=== PATIENT | female | born 1995 | race Hispanic/Latino ===

== ENCOUNTER 2018-05-25 22:09 | Emergency (ER) | payer OTHER ==
[2018-05-25] MEDS: ALBUTEROL 90 MCG/ACT 8GM HFA INHALER INH (23:59)
[2018-05-26] MEDS: BENZONATATE 100 MG CAP PO (00:01)
== END 2018-05-26 00:06 | disposition home or self-care (01) ==
LOC: M ED 05-26 00:06
DX: J20.9 Acute bronchitis, unspecified (principal); J45.909 Unspecified asthma, uncomplicated; E28.2 Polycystic ovarian syndrome; F41.9 Anxiety disorder, unspecified; Z79.899 Other long term (current) drug therapy
CPT/HCPCS: 71046

== ENCOUNTER 2018-06-30 13:20 | Emergency (ER) | payer OTHER ==
[2018-06-30 14:17] LABS: AMORPHOUS SEDIMENT RFX MODERATE (NEGATIVE); KETONE, URINE AUTO RFX NEGATIVE (NEGATIVE); MUCUS, URINE RFX SMALL (NEGATIVE); NITRITE, URINE AUTO RFX NEGATIVE (NEGATIVE); RBC, URINE AUTO RFX 7 /HPF (0-3); SPECIFIC GRAVITY UR AUTO RFX 1.009 (1.002-1.035); SQUAM EPITHELIAL CELL UR AURFX 12 /HPF (0-6)
[2018-06-30 14:21] LABS: LEUKOCYTE ESTERASE UR AUTO RFX 3+ (NEGATIVE); WBC, URINE AUTO RFX 61 /HPF (0-3)
[2018-06-30 16:05] LABS: CHLAMYDIA DNA AMPLIFICATION NEGATIVE (NEGATIVE); GC DNA AMPLIFICATION NEGATIVE (NEGATIVE)
== END 2018-06-30 14:53 | disposition home or self-care (01) ==
LOC: M ED 13:20
DX: N30.00 Acute cystitis without hematuria (principal); J45.909 Unspecified asthma, uncomplicated; E28.2 Polycystic ovarian syndrome; Z79.899 Other long term (current) drug therapy
CPT/HCPCS: 81001

== ENCOUNTER → 2018-07-14 | Outpatient (REF) | payer OTHER ==
[2018-07-14 17:55] LABS: BASO % 0.1 % (0.0-1.0); EOS # 0.2 10^3/uL (0.0-0.50); EOS % 1.9 % (0.0-3.0); HEMATOCRIT 36.8 % (36.0-47.0); HEMOGLOBIN 12.2 g/dl (12.0-15.5); IMMATURE GRANULOCYTE % 0.4 % (0-3.0); LYMPH # 2.7 10^3/uL (1.5-6.5); LYMPH % 33.8 % (24.0-44.0); MEAN CORPUSCULAR HEMOGLOBIN 30.2 pg (27.0-33.0); MEAN CORPUSCULAR HGB CONC 33.2 g/dl (32.0-36.5); MEAN CORPUSCULAR VOLUME 91.1 fl (80.0-96.0); MONO # 0.4 10^3/uL (0.0-0.8); MONO % 5.1 % (0.0-5.0); NEUTROPHILS # 4.6 10^3/uL (1.8-7.7); NEUTROPHILS % 58.7 % (36.0-66.0); PLATELET COUNT, AUTOMATED 341 10^3/uL (150-450); RED BLOOD COUNT 4.04 10^6/uL (4.00-5.40); RED CELL DISTRIBUTION WIDTH 13.3 % (11.5-14.5); WHITE BLOOD COUNT 7.9 10^3/uL (4.0-10.0)
[2018-07-14 18:19] LABS: ESTIMATED AVERAGE GLUCOSE 97 MG/DL (60-110)
[2018-07-14 18:36] LABS: ALBUMIN 4.2 GM/DL (3.2-5.2); ALBUMIN/GLOBULIN RATIO 1.24 (1.00-1.93); ALKALINE PHOSPHATASE 75 U/L (45-117); ALT/SGPT 44 U/L (12-78); ANION GAP 11 MEQ/L (8-16); AST/SGOT 26 U/L (7-37); BILIRUBIN,TOTAL 0.7 MG/DL (0.2-1.0); BLOOD UREA NITROGEN 8 MG/DL (7-18); CALCIUM LEVEL 8.5 MG/DL (8.5-10.1); CARBON DIOXIDE LEVEL 27 MEQ/L (21-32); CHLORIDE LEVEL 102 MEQ/L (98-107); CHOLESTEROL LEVEL 149 MG/DL (<200); CHOLESTEROL RISK RATIO 5.137 (<5); CREATININE FOR GFR 0.64 MG/DL (0.55-1.30); FOLATE 15.7 NG/ML; GLOMERULAR FILTRATION RATE > 60.0 (>60); GLUCOSE, FASTING 84 MG/DL (70-100); HDL CHOLESTEROL 29 MG/DL (>40); LDL CHOLESTEROL 109 MG/DL (<100); NON-HDL-C 120 MG/DL; POTASSIUM SERUM 4.3 MEQ/L (3.5-5.1); SODIUM LEVEL 140 MEQ/L (136-145); TOTAL 25(OH) VITAMIN D 34.8 NG/ML (30.0-100.0); TOTAL PROTEIN 7.6 GM/DL (6.4-8.2); TRIGLYCERIDES LEVEL 55 MG/DL (<150); VITAMIN B12 LEVEL 522 PG/ML
== END ==
LOC: M LAB REF 16:34
DX: Z13.9 Encounter for screening, unspecified (principal)
CPT/HCPCS: 82746

== ENCOUNTER 2018-10-17 08:59 | Emergency (ER) | payer OTHER ==
[~2018-10-17] VITALS: Ht 170.2 cm; Wt 84.5 kg
[~2018-10-17 08:59] MED LIST: APAP500T10 PO; Albuterol inhaler INH; BACT800T5 PO; METF10004 PO; TESS100C PO; VENTAER INH
[2018-10-17] MEDS ORDERED: NS 1,000 ML IV ONE (09:45)
[2018-10-17 09:55] LABS: BASO % 0.3 % (0.0-1.0); EOS # 0.4 10^3/uL (0.0-0.50); EOS % 2.6 % (0.0-3.0); HEMATOCRIT 39.3 % (36.0-47.0); HEMOGLOBIN 13.3 g/dl (12.0-15.5); LYMPH # 3.5 10^3/uL (1.5-6.5); LYMPH % 23.7 % (24.0-44.0); MEAN CORPUSCULAR HEMOGLOBIN 30.2 pg (27.0-33.0); MEAN CORPUSCULAR HGB CONC 33.8 g/dl (32.0-36.5); MEAN CORPUSCULAR VOLUME 89.1 fl (80.0-96.0); MONO # 0.9 10^3/uL (0.0-0.8); MONO % 6.3 % (0.0-5.0); NEUTROPHILS # 9.9 10^3/uL (1.8-7.7); NEUTROPHILS % 66.8 % (36.0-66.0); PLATELET COUNT, AUTOMATED 318 10^3/uL (150-450); RED BLOOD COUNT 4.41 10^6/uL (4.00-5.40); WHITE BLOOD COUNT 14.9 10^3/uL (4.0-10.0)
[2018-10-17 10:12] LABS: HCG, SERUM QUALITATIVE NEGATIVE (NEGATIVE)
[2018-10-17] MEDS ORDERED: KETOROLAC 30 MG/ML VIAL (J1885) IV ONE (10:15)
[2018-10-17 10:18] LABS: BLOOD UREA NITROGEN 8 MG/DL (7-18); CALCIUM LEVEL 9.1 MG/DL (8.5-10.1); CARBON DIOXIDE LEVEL 28 MEQ/L (21-32); CHLORIDE LEVEL 103 MEQ/L (98-107); CREATININE FOR GFR 0.63 MG/DL (0.55-1.30); GLOMERULAR FILTRATION RATE > 60.0 (>60); GLUCOSE, FASTING 86 MG/DL (70-100); POTASSIUM SERUM 4.1 MEQ/L (3.5-5.1); SODIUM LEVEL 138 MEQ/L (136-145)
[2018-10-17] MEDS ORDERED: PERC5TAB12 PO (11:28)
--- NOTE | 2018-10-17 11:28 | REP ---
PELVIC ULTRASOUND: Real-time sonographic evaluation of the pelvis is performed utilizing transabdominal and endovaginal technique. Bladder measures 7.6 x 5.3 x 8.6 cm. The uterus measures 8.3 x 3.0 x 5.4 cm. Endometrial thickness if 4 mm with no endometrial fluid collection. The ovaries are normal in size and echotexture, right ovary measuring 4.7 x 2.8 x 3.4 cm and left ovary 4.1 x 3.0 x 4.2 x cm. There is no adnexal mass or free fluid. There is no torsion with duplex Doppler evaluation, RI right ovary 0.58, left ovary 0.53. IMPRESSION: Negative pelvic ultrasound. Electronically Signed by Dusty Tapia MD 10/17/2018 05:39 P
[2018-10-17 11:34] VITALS: BP 119/75
== END 2018-10-17 11:38 | disposition home or self-care (01) ==
LOC: M ED 08:59
DX: R10.2 Pelvic and perineal pain (principal); G89.29 Other chronic pain; E28.2 Polycystic ovarian syndrome; Z87.42 Personal history of other diseases of the female genital tract; F41.9 Anxiety disorder, unspecified; J45.909 Unspecified asthma, uncomplicated; Z79.84 Long term (current) use of oral hypoglycemic drugs
CPT/HCPCS: 76830; 76856; 80048; 81001; 84703; 85025; 87086; 93976; 96374; 99284; J1885

== ENCOUNTER 2018-11-06 16:38 | Emergency (ER) | payer OTHER ==
[~2018-11-06] VITALS: Ht 170.2 cm; Wt 86.4 kg
[~2018-11-06 16:38] MED LIST changes: +PERC5TAB12 PO
[2018-11-06] MEDS ORDERED: CLOMID (16:47)
[2018-11-06] MEDS ORDERED: NS 1,000 ML IV ONE (17:15)
[2018-11-06] MEDS ORDERED: ONDANSETRON 4MG/2ML VIAL (J2405) IV ONE (17:15)
[2018-11-06 17:32] LABS: BASO % 0.3 % (0.0-1.0); HEMATOCRIT 38.7 % (36.0-47.0); HEMOGLOBIN 13.3 g/dl (12.0-15.5); LYMPH # 2.2 10^3/uL (1.5-6.5); LYMPH % 18.1 % (24.0-44.0); MEAN CORPUSCULAR HEMOGLOBIN 30.6 pg (27.0-33.0); MEAN CORPUSCULAR HGB CONC 34.4 g/dl (32.0-36.5); MONO # 0.4 10^3/uL (0.0-0.8); MONO % 3.5 % (0.0-5.0); NEUTROPHILS # 9.2 10^3/uL (1.8-7.7); NEUTROPHILS % 77.8 % (36.0-66.0); PLATELET COUNT, AUTOMATED 432 10^3/uL (150-450); RED BLOOD COUNT 4.35 10^6/uL (4.00-5.40); WHITE BLOOD COUNT 11.9 10^3/uL (4.0-10.0)
[2018-11-06 17:51] LABS: HCG, SERUM QUALITATIVE NEGATIVE (NEGATIVE)
[2018-11-06 17:55] LABS: ALBUMIN 4.6 GM/DL (3.2-5.2); ALT/SGPT 26 U/L (12-78); BILIRUBIN,DIRECT 0.2 MG/DL (0.0-0.2); BILIRUBIN,TOTAL 0.8 MG/DL (0.2-1.0); BLOOD UREA NITROGEN 12 MG/DL (7-18); CALCIUM LEVEL 9.6 MG/DL (8.5-10.1); CARBON DIOXIDE LEVEL 25 MEQ/L (21-32); CHLORIDE LEVEL 105 MEQ/L (98-107); CREATININE FOR GFR 0.65 MG/DL (0.55-1.30); GLOMERULAR FILTRATION RATE > 60.0 (>60); GLUCOSE, FASTING 100 MG/DL (70-100); LIPASE 88 U/L (73-393); SODIUM LEVEL 140 MEQ/L (136-145); TOTAL PROTEIN 8.6 GM/DL (6.4-8.2)
[2018-11-06 18:05] LABS: INFLUENZA A AMPLIFICATION NEGATIVE (NEGATIVE); INFLUENZA B AMPLIFICATION NEGATIVE (NEGATIVE)
[2018-11-06] MEDS ORDERED: ACETAMINOPHEN TAB 650MG DOSE (2X325MG) PO ONE (19:15)
[2018-11-06] MEDS ORDERED: ONDA4TAB6 PO (19:47)
[2018-11-06 19:57] VITALS: BP 118/67
--- NOTE | 2018-11-07 08:25 | REP ---
Chest x-ray: Two views. History: Cough times 2 weeks . Comparison study: May 25, 2018 . Findings: The lungs are well inflated and free of infiltrate. The pleural angles are sharp. The heart size is normal. Pulmonary vasculature is not increased. No significant bony abnormality is seen. Impression: Negative chest x-ray. Electronically Signed by Gil Tobin MD 11/07/2018 08:16 A
== END 2018-11-06 20:11 | disposition home or self-care (01) ==
LOC: M ED 16:38
DX: E86.0 Dehydration (principal); R10.84 Generalized abdominal pain; R11.2 Nausea with vomiting, unspecified; R19.7 Diarrhea, unspecified; Z20.89 Contact with and (suspected) exposure to other communicable diseases; E28.2 Polycystic ovarian syndrome; N80.9 Endometriosis, unspecified; Z79.899 Other long term (current) drug therapy; Z79.810 Long term (current) use of selective estrogen receptor modulators (SERMs)
CPT/HCPCS: 71046; 80048; 80076; 81001; 83690; 84703; 85025; 87502; 96361; 96374; 99284; J2405

== ENCOUNTER 2018-12-23 17:28 | Emergency (ER) | payer OTHER ==
[~2018-12-23] VITALS: Ht 170.2 cm; Wt 92.9 kg
[~2018-12-23 17:28] MED LIST changes: +CLOMID; +ONDA4TAB6 PO
[2018-12-23 17:29] VITALS: BP 138/88
[2018-12-23] MEDS ORDERED: MACR100C43 PO (18:15)
== END 2018-12-23 18:21 | disposition home or self-care (01) ==
LOC: M ED 17:28
DX: N39.0 Urinary tract infection, site not specified (principal); Z32.01 Encounter for pregnancy test, result positive; N80.9 Endometriosis, unspecified; J45.909 Unspecified asthma, uncomplicated

== ENCOUNTER 2018-12-28 03:04 | Emergency (ER) | payer OTHER ==
[~2018-12-28] VITALS: Ht 170.2 cm; Wt 90.0 kg
[~2018-12-28 03:04] MED LIST changes: +MACR100C43 PO
[2018-12-28] MEDS ORDERED: PRENTAB53 PO (03:10)
[2018-12-28 03:59] LABS: BASO % 0.3 % (0.0-1.0); EOS # 0.4 10^3/uL (0.0-0.50); EOS % 3.2 % (0.0-3.0); HEMATOCRIT 36.9 % (36.0-47.0); HEMOGLOBIN 12.1 g/dl (12.0-15.5); LYMPH # 4.2 10^3/uL (1.5-6.5); LYMPH % 31.9 % (24.0-44.0); MEAN CORPUSCULAR HEMOGLOBIN 30.6 pg (27.0-33.0); MEAN CORPUSCULAR HGB CONC 32.8 g/dl (32.0-36.5); MEAN CORPUSCULAR VOLUME 93.2 fl (80.0-96.0); MONO # 0.9 10^3/uL (0.0-0.8); MONO % 6.6 % (0.0-5.0); NEUTROPHILS # 7.7 10^3/uL (1.8-7.7); NEUTROPHILS % 57.7 % (36.0-66.0); PLATELET COUNT, AUTOMATED 325 10^3/uL (150-450); RED BLOOD COUNT 3.96 10^6/uL (4.00-5.40); WHITE BLOOD COUNT 13.3 10^3/uL (4.0-10.0)
[2018-12-28 04:29] LABS: BLOOD UREA NITROGEN 16 MG/DL (7-18); CALCIUM LEVEL 8.8 MG/DL (8.5-10.1); CARBON DIOXIDE LEVEL 26 MEQ/L (21-32); CHLORIDE LEVEL 105 MEQ/L (98-107); CREATININE FOR GFR 0.82 MG/DL (0.55-1.30); GLOMERULAR FILTRATION RATE > 60.0 (>60); GLUCOSE, FASTING 93 MG/DL (70-100); HCG, SERUM QUANTITATIVE 175 MIU/ML; POTASSIUM SERUM 4.1 MEQ/L (3.5-5.1); SODIUM LEVEL 140 MEQ/L (136-145)
[2018-12-28 05:49] LABS: CHLAMYDIA DNA AMPLIFICATION NEGATIVE (NEGATIVE); GC DNA AMPLIFICATION NEGATIVE (NEGATIVE)
--- NOTE | 2018-12-28 06:13 | REPVR ---
EXAM: US Duplex Artery or Vein of the Abdominal and/or Reproductive Organs, Limited Ovaries EXAM DATE/TIME: 12/28/2018 5:17 AM CLINICAL HISTORY: 23 years old, female; Signs and symptoms; Lmp or gestational age (in weeks): Lmp 11/22/18; Antepartum complications; Bleeding; ; Additional info: Vag bleed eval for iup TECHNIQUE: Imaging protocol: Real-time duplex ultrasound scan of the arterial or venous flow with mohan scale, color Doppler flow and spectral waveform analysis. Limited duplex exam focused on the ovaries. Duplex exam was performed to evaluate for ovarian torsion or mass. COMPARISON: No relevant prior studies available. FINDINGS: Right adnexa: Normal duplex of the ovary. Normal Doppler waveforms and color flow. No evidence of ovarian torsion. Left adnexa: Normal duplex of the ovary. Normal Doppler waveforms and color flow. No evidence of ovarian torsion. IMPRESSION: Normal duplex of the ovaries. No evidence of ovarian torsion. EXAM: US First Trimester, Transabdominal and US , Transvaginal EXAM DATE/TIME: 12/28/2018 5:17 AM CLINICAL HISTORY: 23 years old, female; Signs and symptoms; Lmp or gestational age (in weeks): Lmp 11/22/18; Antepartum complications; Bleeding; ; Additional info: Vag bleed eval for iup TECHNIQUE: Imaging protocol: Real-time transabdominal obstetrical ultrasound of the maternal pelvis and a first trimester , less than 14 weeks 0 days, with image documentation. Transvaginal imaging was used for better evaluation of the fetus and adnexa. COMPARISON: No relevant prior studies available. FINDINGS: GESTATION: Gestation: No evidence of IUP at this time. MATERNAL: Uterus: The uterus is retroflexed and measures 8.8 x 5.4 x 5.8 cm. No evidence of myometrial mass. Prominent endometrium measuring 2.1 cm, consistent with decidual reaction. Cervix: Unremarkable. Right adnexa: The right ovary measures 4.3 x 3.1 x 3.6 cm and is unremarkable in appearance. There is vascular flow present. No adnexal masses. Left adnexa: The left ovary measures 3.7 x 3.0 x 3.1 cm and is unremarkable in appearance. There is vascular flow present. No adnexal masses. Intraperitoneal: No evidence of free fluid. IMPRESSION: 1. No evidence of IUP at this time. Differential considerations include very early IUP which is not yet seen sonographically or failed . Ectopic cannot be entirely excluded, however, no adnexal masses or free fluid is visualized. Recommend clinical correlation as well as correlation with serial beta hCG and short term followup ultrasound. 2. Unremarkable appearance of the ovaries. Electronically signed by: Luis E Dunn On 12/28/2018 06:12:54 AM
[2018-12-28] MEDS ORDERED: MACR100C43 PO (06:37)
[2018-12-28 06:44] VITALS: BP 120/80
== END 2018-12-28 06:46 | disposition home or self-care (01) ==
LOC: M ED 03:04
DX: O20.0 Threatened abortion (principal); O23.41 Unspecified infection of urinary tract in pregnancy, first trimester; O34.81 Maternal care for other abnormalities of pelvic organs, first trimester; Z79.899 Other long term (current) drug therapy

== ENCOUNTER → 2018-12-30 | Outpatient (CLI) | payer OTHER ==
[~2018-12-30] MED LIST changes: +KEFL500C17 PO; +PRENTAB53 PO
== END ==
LOC: M LAB 08:40
PROVIDERS: ATTEND Emergency Medicine
DX: N93.9 Abnormal uterine and vaginal bleeding, unspecified (principal)

== ENCOUNTER 2019-01-02 20:25 | Emergency (ER) | payer OTHER ==
[~2019-01-02] VITALS: Ht 170.2 cm; Wt 87.7 kg
[~2019-01-02 20:25] MED LIST changes: -KEFL500C17 PO
[2019-01-02 21:03] LABS: BASO % 0.1 % (0.0-1.0); EOS # 0.2 10^3/uL (0.0-0.50); EOS % 1.4 % (0.0-3.0); HEMATOCRIT 36.1 % (36.0-47.0); HEMOGLOBIN 12.5 g/dl (12.0-15.5); LYMPH # 4.1 10^3/uL (1.5-6.5); LYMPH % 26.2 % (24.0-44.0); MEAN CORPUSCULAR HEMOGLOBIN 31.9 pg (27.0-33.0); MEAN CORPUSCULAR HGB CONC 34.6 g/dl (32.0-36.5); MEAN CORPUSCULAR VOLUME 92.1 fl (80.0-96.0); MONO # 0.7 10^3/uL (0.0-0.8); MONO % 4.5 % (0.0-5.0); NEUTROPHILS # 10.4 10^3/uL (1.8-7.7); NEUTROPHILS % 67.4 % (36.0-66.0); PLATELET COUNT, AUTOMATED 328 10^3/uL (150-450); RED BLOOD COUNT 3.92 10^6/uL (4.00-5.40); WHITE BLOOD COUNT 15.5 10^3/uL (4.0-10.0)
--- NOTE | 2019-01-02 22:44 | REPVR ---
EXAM: US First Trimester, Transabdominal EXAM DATE/TIME: 01/02/2019 9:43 PM CLINICAL HISTORY: 23 years old, female; Signs and symptoms; Lmp or gestational age (in weeks): 5w6d; Antepartum complications; Bleeding; ; Additional info: Vaginal bleeding TECHNIQUE: Imaging protocol: Real-time transabdominal obstetrical ultrasound of the maternal pelvis and a first trimester , less than 14 weeks 0 days, with image documentation. COMPARISON: 1ST TRIMESTER US 12/28/2018 4:57 AM FINDINGS: GESTATION: Gestation: An intrauterine gestational sac can be identified. There is surrounding decidual reaction. The gestational sac is consistent with 5 weeks 2 days. A well-formed yolk sac can be identified. No pole can be identified at this time. It may be too early to identify a pole. A followup ultrasound would be important to demonstrate development of pole or cardiac activity. This would be to exclude any possibility of blighted ovum or abnormal gestational sac. Microscopic ectopic not absolutely excluded. A complete survey should be done at 18-20 weeks gestation to assess the fetus. MATERNAL: Uterus: Uterus 8.7 CM in length by 5.3 CM in AP dimension by 5.9 CM in transverse dimension. Right adnexa: The right ovary measures 4.3 CM in length by 2.5 cm thickness. There is vascular flow in the right ovary with no evidence of torsion. Left adnexa: The left ovary measures 3.6 CM in length by 2.5 CM in thickness. There is vascular flow of the left ovary with no evidence of torsion. Intraperitoneal: There is no evidence of free fluid. IMPRESSION: 1. An intrauterine gestational sac is identified. Based on the size of the gestational sac this would be consistent with 5 weeks 1 day. 2. The pole cannot be identified and cardiac activity not identified. It would be important to have a followup ultrasound to insure development of a pole and cardiac activity. A complete survey should be done at 18-20 weeks gestation. Please see the above discussion. Electronically signed by: Hayes Garay On 01/02/2019 22:43:59 PM
[2019-01-02 23:15] VITALS: BP 125/77
== END 2019-01-02 23:17 | disposition home or self-care (01) ==
LOC: M ED 20:25
DX: O20.0 Threatened abortion (principal); O23.41 Unspecified infection of urinary tract in pregnancy, first trimester; O34.81 Maternal care for other abnormalities of pelvic organs, first trimester; Z3A.01 Less than 8 weeks gestation of pregnancy; Z79.899 Other long term (current) drug therapy

== ENCOUNTER → 2019-01-06 | Outpatient (CLI) | payer OTHER ==
[~2019-01-06] MED LIST changes: +KEFL500C17 PO
== END ==
LOC: M LAB 09:13
PROVIDERS: ATTEND Obstetrics & Gynecology
DX: O20.0 Threatened abortion (principal); Z3A.00 Weeks of gestation of pregnancy not specified

== ENCOUNTER 2019-01-09 12:23 | Emergency (ER) | payer OTHER ==
[~2019-01-09] VITALS: Ht 170.2 cm; Wt 92.2 kg
[~2019-01-09 12:23] MED LIST changes: -KEFL500C17 PO
[2019-01-09] MEDS ORDERED: CEPHALEXIN 500 MG CAP PO ONE (14:45)
[2019-01-09 15:55] VITALS: BP 127/73
--- NOTE | 2019-01-09 16:02 | REP ---
Clinical: Vaginal bleeding for dating and viability. Technique: Transabdominal first trimester obstetrical ultrasound. Comparison: 01/02/2019 Findings: Heterogeneous retroverted uterus measures 8.9 x 5.5 x 5.9 cm. Empty gestational sac identified with mean sac diameter of 14.4 mm corresponds to 6 weeks 2 days gestational age. No yolk sac or pole identified. Bilateral ovaries are normal. Right ovary measures 4.0 x 2.4 x 3.4 cm with 1.8 cm corpus luteal cyst. Left ovary measures 3.0 x 2.4 x 2.8 cm. No pelvic free fluid. Impression: Empty gestational sac. Differential diagnosis includes spontaneous as well as early and less likely ectopic . Correlation with serial HCG levels recommended. Electronically Signed by Luis E Rocha MD 01/09/2019 03:54 P
[2019-01-09] MEDS ORDERED: KEFL500C17 PO (16:10)
== END 2019-01-09 16:29 | disposition home or self-care (01) ==
LOC: M ED 12:23
DX: O20.0 Threatened abortion (principal); O23.11 Infections of bladder in pregnancy, first trimester; Z3A.01 Less than 8 weeks gestation of pregnancy

== ENCOUNTER → 2019-02-13 | Outpatient (CLI) | payer OTHER ==
[~2019-02-13] MED LIST changes: +KEFL500C17 PO
[2019-02-13 12:17] LABS: BASO % 0.2 % (0.0-1.0); EOS # 0.3 10^3/uL (0.0-0.50); HEMATOCRIT 34.1 % (36.0-47.0); HEMOGLOBIN 11.6 g/dl (12.0-15.5); LYMPH # 2.5 10^3/uL (1.5-6.5); LYMPH % 19.8 % (24.0-44.0); MEAN CORPUSCULAR HEMOGLOBIN 30.6 pg (27.0-33.0); MONO # 0.7 10^3/uL (0.0-0.8); MONO % 5.8 % (0.0-5.0); NEUTROPHILS % 71.9 % (36.0-66.0); PLATELET COUNT, AUTOMATED 323 10^3/uL (150-450); RED BLOOD COUNT 3.79 10^6/uL (4.00-5.40); WHITE BLOOD COUNT 12.5 10^3/uL (4.0-10.0)
[2019-02-13 13:30] LABS: HEPATITIS C VIRUS ABY INDEX 0.6 INDEX (<0.8); HIV 1&2 SCREEN CENTAUR NEGATIVE (NEGATIVE); RUBELLA IgG QUALITATIVE IMMUNE (IMMUNE)
[2019-02-13 15:03] LABS: CHLAMYDIA DNA AMPLIFICATION NEGATIVE (NEGATIVE); GC DNA AMPLIFICATION NEGATIVE (NEGATIVE)
== END ==
LOC: M LAB 11:42
PROVIDERS: ATTEND Obstetrics & Gynecology
DX: Z34.01 Encounter for supervision of normal first pregnancy, first trimester (principal); Z3A.08 8 weeks gestation of pregnancy

== ENCOUNTER → 2019-02-15 | Outpatient (REF) | payer OTHER | LOC: M LAB REF 12:54 | PROVIDERS: ATTEND Specialist | DX: Z34.01 Encounter for supervision of normal first pregnancy, first trimester (principal) ==

== ENCOUNTER 2019-03-31 17:49 | Emergency (ER) | payer OTHER ==
[~2019-03-31] VITALS: Ht 170.2 cm; Wt 92.3 kg
[2019-03-31 19:01] LABS: BASO % 0.2 % (0.0-1.0); EOS # 0.2 10^3/uL (0.0-0.50); EOS % 1.6 % (0.0-3.0); HEMATOCRIT 33.2 % (36.0-47.0); HEMOGLOBIN 11.4 g/dl (12.0-15.5); LYMPH # 3.2 10^3/uL (1.5-6.5); LYMPH % 20.8 % (24.0-44.0); MEAN CORPUSCULAR HEMOGLOBIN 31.5 pg (27.0-33.0); MEAN CORPUSCULAR HGB CONC 34.3 g/dl (32.0-36.5); MEAN CORPUSCULAR VOLUME 91.7 fl (80.0-96.0); MONO # 0.9 10^3/uL (0.0-0.8); MONO % 6.2 % (0.0-5.0); NEUTROPHILS # 10.8 10^3/uL (1.8-7.7); NEUTROPHILS % 70.7 % (36.0-66.0); PLATELET COUNT, AUTOMATED 280 10^3/uL (150-450); RED BLOOD COUNT 3.62 10^6/uL (4.00-5.40); WHITE BLOOD COUNT 15.3 10^3/uL (4.0-10.0)
--- NOTE | 2019-03-31 20:54 | REPVR ---
EXAM: US , Limited EXAM DATE/TIME: 03/31/2019 7:19 PM CLINICAL HISTORY: 23 years old, female; Lmp or gestational age (in weeks): 18; Antepartum complications; Bleeding; ; Additional info: Vag bleeding TECHNIQUE: Imaging protocol: Real-time ultrasound of the maternal uterus with image documentation. Exam focused on the clinical indication. COMPARISON: US PELVIC NON-OB COMPLETE 10/17/2018 10:24 AM FINDINGS: GESTATION: Gestation: Intrauterine gestation. Heart rate: heart rate = 144 beats per minute. Amniotic fluid: Amniotic fluid index = 13.3 cm MATERNAL: Other findings: 5.4 cm in length and closed at the time of the examination. Posterior; IMPRESSION: Single live intrauterine . Normal amniotic fluid index. EXAM: US Doppler Velocimetry of the Umbilical Artery EXAM DATE/TIME: 03/31/2019 7:19 PM CLINICAL HISTORY: 23 years old, female; Lmp or gestational age (in weeks): 18; Antepartum complications; Bleeding; ; Additional info: Vag bleeding TECHNIQUE: Imaging protocol: US Doppler velocimetry of the umbilical artery with Doppler color and waveform analysis. COMPARISON: US PELVIC NON-OB COMPLETE 10/17/2018 10:24 AM FINDINGS: Umbilical artery Doppler: Waveforms are within normal limits for age. Umbilical artery peak systolic velocity: Peak systolic velocity = 36 cm/s; Umbilical artery systolic to diastolic ratio: systolic/diastolic ratio = 2.76 IMPRESSION: Unremarkable umbilical Doppler for age. Electronically signed by: Ava Herrera On 03/31/2019 20:53:37 PM
[2019-03-31 22:00] VITALS: BP 122/65
== END 2019-03-31 22:07 | disposition left against medical advice (07) ==
LOC: M ED 17:49
DX: Z53.29 Procedure and treatment not carried out because of patient's decision for other reasons (principal)

== ENCOUNTER → 2019-04-06 | Outpatient (CLI) | payer OTHER ==
--- NOTE | 2019-04-06 09:51 | REP ---
OBSTETRIC SONOGRAPHY: HISTORY: Supervision of for anatomy. FINDINGS: Scanning through the gravid uterus demonstrates a viable single intrauterine gestation in a cephalic lie. motion is observed, and heart rate is recorded at 126 beats per minute. A posterior grade 0 placenta is seen without evidence of previa. Amniotic fluid is subjectively normal. Closed cervical length measured transabdominally is 3.8 cm. No extrauterine abnormalities observed. Exam quality inhibited some degree by position and maternal body habitus. No anomaly is seen. Face and profile and cardiac views are less than optimally seen due to position. The following additional anatomic structures are identified and felt to be sonographically unremarkable: cranium, choroid plexus, cavum, cerebellum and posterior fossa, lungs, diaphragm, left-sided stomach, abdominal wall cord insertion, three-vessel umbilical cord, kidneys and bladder, spine, upper and lower extremities. BIOMETRY CHART: BPD 4.4 cm = 19 weeks 2 days Head circumference 16.1 cm = 18 weeks 6 days Abdominal circumference 13.4 cm = 18 weeks 6 days Femur length 3.1 cm = 19 weeks 5 days Humeral length 2.8 cm = 19 weeks 1 day HC/AC ratio normal 1.20 Cephalic index normal 0.76 Estimated weight 282 grams, 0 pounds 9 ounces, 44th percentile for 19 weeks 2 days. IMPRESSION :Viable single intrauterine gestation at 19 weeks 1 day by today's composite sonographic criteria. SILVIA by today's sonography August 30, 2019. Electronically Signed by Gil Tobin MD 04/06/2019 04:26 P
== END ==
LOC: M RAD 07:11
PROVIDERS: ATTEND Advanced Practice Midwife
DX: Z34.02 Encounter for supervision of normal first pregnancy, second trimester (principal); Z36.89 Encounter for other specified antenatal screening; Z3A.19 19 weeks gestation of pregnancy

== ENCOUNTER → 2019-04-21 | Outpatient (CLI) | payer OTHER ==
--- NOTE | 2019-04-21 10:38 | REP ---
Clinical: Anatomical evaluation. Comparison: 04/06/2019 . Findings: Examination demonstrates a single live intrauterine in breech presentation. motion is identified by technologist. Placenta is noted posterior and grade one without evidence for placenta previa or abruption. Amniotic fluid volume is normal. Cervix measures 4.3 cm in length and appears closed. No evidence for nuchal cord. Gestational age by LMP 21 weeks 3 days with SILVIA 08/29/2019 . Gestational age by current measurements 21 weeks 0 days with SILVIA 09/01/2019 . FHR equals 150 beats per minute. Estimated weight 379 grams ( 27th percentile). Anatomical assessment demonstrates normal structures including cranium, choroid plexus, cavum, cerebellum/posterior fossa, facial features, lungs, four-chamber heart/ventricular outflow tracts, diaphragm, stomach, cord insertion/three-vessel cord, kidneys/bladder, and spine. Impression: Single live intrauterine in breech presentation demonstrating appropriate interval growth. In conjunction with prior examination anatomical assessment is complete and normal. No gross abnormalities are identified. Electronically Signed by Luis E Rocha MD 04/21/2019 10:29 A
== END ==
LOC: M RAD 09:13
PROVIDERS: ATTEND Obstetrics & Gynecology
DX: O32.1XX0 Maternal care for breech presentation, not applicable or unspecified (principal); Z36.2 Encounter for other antenatal screening follow-up; Z3A.21 21 weeks gestation of pregnancy

== ENCOUNTER → 2019-06-06 | Outpatient (CLI) | payer OTHER ==
[2019-06-06 13:57] LABS: HEMATOCRIT 33.5 % (36.0-47.0); MEAN CORPUSCULAR HEMOGLOBIN 29.7 pg (27.0-33.0); MEAN CORPUSCULAR HGB CONC 32.8 g/dl (32.0-36.5); MEAN CORPUSCULAR VOLUME 90.5 fl (80.0-96.0); PLATELET COUNT, AUTOMATED 316 10^3/uL (150-450); WHITE BLOOD COUNT 12.8 10^3/uL (4.0-10.0)
== END ==
LOC: M LAB 12:10
PROVIDERS: ATTEND Obstetrics & Gynecology
DX: Z34.82 Encounter for supervision of other normal pregnancy, second trimester (principal); Z3A.00 Weeks of gestation of pregnancy not specified

== ENCOUNTER → 2019-07-05 | Outpatient (REF) | payer OTHER ==
[2019-07-05 21:41] LABS: CHLAMYDIA DNA AMPLIFICATION NEGATIVE (NEGATIVE); GC DNA AMPLIFICATION NEGATIVE (NEGATIVE)
== END ==
LOC: M LAB REF 16:54
PROVIDERS: ATTEND Advanced Practice Midwife
DX: Z34.03 Encounter for supervision of normal first pregnancy, third trimester (principal); Z12.4 Encounter for screening for malignant neoplasm of cervix
CPT/HCPCS: 87491; 87591; G0123

== ENCOUNTER → 2019-08-02 | Outpatient (REF) | payer OTHER | LOC: M SFHCWAGY 10:00 | PROVIDERS: ATTEND Advanced Practice Midwife | DX: Z36.85 Encounter for antenatal screening for Streptococcus B (principal) ==

== ENCOUNTER 2019-08-08 19:18 | Outpatient (CLI) | payer OTHER ==
[~2019-08-08] VITALS: Ht 170.2 cm; Wt 110.5 kg
[2019-08-08 19:35] VITALS: BP 128/84
--- NOTE | 2019-08-08 20:30 | IPNPDOC ---
Text Note Date of Service The patient was seen on 08/08/19. NOTE Subjective: Patient is a 24-year-old female at 37 weeks gestation who reports that the labor and delivery unit with a 4 day history of vaginal bleeding. Patient says 4 days ago she reported slight spotting to the office and was told this was normal however, she has reported an increase in bleeding throughout the day today. Patient denies any abdominal pain. She does report s ome slight cramping. She denies recent intercourse. She denies a fluid gush or other discharge. Objective: Vitals: (see below) General: Alert and oriented female who is lying on stretcher. Patient does not appear to be in acute distress Abdomen: Gravid, uterus is soft and nontender to palpation. Vaginal: On speculum exam, the patient's cervix appears slightly dilated with friable tissue and an area of minimal bleeding at the 7 to 8 o'clock position on the cervix. Cervical: 3 cm/70%/-2 station/posterior/soft heart monitor: Category 1 tracing Assessment/Plan 24-year-old female 37 weeks' gestation reports to labor and delivery with vaginal bleeding. Based on physical exam, it appears that the patient is bleeding from her cervix and not from her uterus. We will monitor the patient on labor and delivery floor. Patient monitored on the monitoring which are category 1 tracing throughout. Patient will be discharged home. Patient instructed to rest and avoid intercourse at this will cause increased bleeding. Patient given instructions on what to look for to return to the hospital. She is to call with any questions. GME ATTESTATION GME ATTESTATION My faculty preceptor for this patient encounter was physically present during the encounter and was fully available. All aspects of the patient interview, examination, medical decision making process, and medical care plan development were reviewed and approved by the faculty preceptor. The faculty preceptor is aware and concurs with the plan as stated in the body of this note and will attest to such by his/her cosignature. SASCHA BERNARD DO Aug 08, 2019 20:30
== END 2019-08-08 20:58 | disposition home or self-care (01) ==
LOC: M LDO 19:18
PROVIDERS: ATTEND Specialist
DX: O26.853 Spotting complicating pregnancy, third trimester (principal); Z3A.37 37 weeks gestation of pregnancy
CPT/HCPCS: 59025; G0378; G0463

== ENCOUNTER → 2019-08-10 | Outpatient (CLI) | payer OTHER | LOC: M PLALAB 14:56 | PROVIDERS: ATTEND Advanced Practice Midwife | DX: Z34.93 Encounter for supervision of normal pregnancy, unspecified, third trimester (principal) ==

== ENCOUNTER 2019-08-17 13:15 | Inpatient (IN) | payer OTHER ==
[~2019-08-17] VITALS: Ht 170.2 cm; Wt 112.9 kg
[2019-08-17] VITALS (20 sets, daily range): BP systolic 117–147; BP diastolic 59–90
[2019-08-17 14:46] LABS: CREATININE,RANDOM URINE 53.5 MG/DL; TOTAL PROTEIN,RANDOM URINE 6.8 MG/DL (0.0-12.0)
[2019-08-17 14:47] LABS: ALT/SGPT 12 U/L (12-78); BILIRUBIN,TOTAL 0.3 MG/DL (0.2-1.0); CREATININE FOR GFR 0.62 MG/DL (0.55-1.30); GLOMERULAR FILTRATION RATE > 60.0 (>60); LDH LACTATE DEHYDROGENASE 158 U/L (84-246); URIC ACID 4.6 MG/DL (2.6-6.0)
[2019-08-17] MEDS ORDERED: OXYTOCIN DRIP 30 UNITS in IV 1 EA IV SCH (16:00)
[2019-08-17] MEDS: LR 1,000 ML IV SCH (16:06)
[2019-08-17 16:26] LABS: HEMATOCRIT 32.9 % (36.0-47.0); HEMOGLOBIN 10.8 g/dl (12.0-15.5); MEAN CORPUSCULAR HGB CONC 32.8 g/dl (32.0-36.5); MEAN CORPUSCULAR VOLUME 88.4 fl (80.0-96.0); PLATELET COUNT, AUTOMATED 281 10^3/uL (150-450); RED BLOOD COUNT 3.72 10^6/uL (4.00-5.40); WHITE BLOOD COUNT 11.6 10^3/uL (4.0-10.0)
--- NOTE | 2019-08-17 17:54 | HPE ---
DATE OF ADMISSION: 08/17/2019 A 24-year-old (G) 1, para (P) 0 female at 38 and 2/7 weeks gestation by last menstrual period (LMP), consistent with eight-week ultrasound, estimated date of confinement (EDC) of 08/29/2019, presents from the office with elevated blood pressure of 146/88 today. She has had a mild headache all day. It has not been relieved by Tylenol. She denies pain or contractions. This was her first elevated blood pressure during the . COURSE: The patient initiated care at eight weeks gestation on 01/18/2019. Her first trimester blood pressure is 112/74, weight 201. She had no complications during the . PAST MEDICAL HISTORY: Mild asthma. PAST SURGICAL HISTORY: None. ALLERGIES: None. SOCIAL HISTORY: The patient is . She lives at [place]. She denies cigarettes, alcohol or drug use. FAMILY HISTORY: Noncontributory. PHYSICAL EXAMINATION: Blood pressure 142/86, pulse 96, temperature 98.3. She is in no apparent distress. HEAD AND NECK: Normal. LUNGS: Clear. HEART: Regular rate and rhythm. ABDOMEN: Nontender, gravid. heart tones category 1. STERILE VAGINAL EXAMINATION: 4 cm, 70%, -2, posterior, soft, vertex. Contractions irregular. EXTREMITIES: Nontender. LABORATORY DATA: Blood type O+, Rubella immune, RPR nonreactive, hepatitis B and C negative, HIV negative, GBS negative. ASSESSMENT: A 24-year-old (G) 1, para (P) 0 female at 38 and 2/7 weeks with new onset of hypertension. PLAN: We plan to admit on 08/17/2019 for labor induction. Risks of induction were discussed.
[2019-08-18] VITALS (55 sets, daily range): BP systolic 109–148; BP diastolic 59–95
[2019-08-18] MEDS: LR 1,000 ML IV SCH (06:17)
[2019-08-18] MEDS ORDERED: miSOPROStol 50 MCG 1/2 TAB (S0191) SL ONE (10:00)
--- NOTE | 2019-08-18 15:24 | IPNPDOC ---
Text Note Date of Service The patient was seen on 08/18/19. NOTE Reports only mild cramping since the misoprostol this am Irregular UC FH Cat I SVE 4-5/50/-2 AROM small amount clear fluid Restart pitocin VS,Fishbone, I+O VS, Fishbone, I+O Vital Signs Date Time Temp Pulse Resp B/P (MAP) Pulse Ox O2 Delivery O2 Flow Rate FiO2 08/18/19 10:09 92 18 135/70 (91) 08/18/19 07:47 98.4 08/17/19 13:39 Room Air I&O- Last 24 Hours up to 6 AM 08/18/19 06:00 Intake Total 1688 ml Output Total 900 ml Balance 788 ml Shawna Rowe CNM Aug 18, 2019 15:24
[2019-08-18 18:14] LABS: HEMATOCRIT 33.5 % (36.0-47.0); HEMOGLOBIN 10.8 g/dl (12.0-15.5); MEAN CORPUSCULAR HEMOGLOBIN 28.4 pg (27.0-33.0); MEAN CORPUSCULAR HGB CONC 32.2 g/dl (32.0-36.5); MEAN CORPUSCULAR VOLUME 88.2 fl (80.0-96.0); PLATELET COUNT, AUTOMATED 281 10^3/uL (150-450); WHITE BLOOD COUNT 12.9 10^3/uL (4.0-10.0)
[2019-08-18] MEDS ORDERED: FENTANYL 2MCG/ML ROPIVACAINE 0.2% IN 0.9% NACL 100ML IVBAG As Ordered ONE (18:29)
[2019-08-18] MEDS ORDERED: LR 1,000 ML IV SCH (18:57)
[2019-08-18] MEDS ORDERED: OXYTOCIN DRIP 30 UNITS in IV 1 EA IV SCH (19:00)
[2019-08-18] MEDS ORDERED: LACTATED RINGER'S 1000 ML IV PRN (19:15)
[2019-08-18] MEDS ORDERED: NALOXONE INJ 0.4 MG/1 ML VIAL (J2310) IV PRN (19:15)
[2019-08-18] MEDS ORDERED: EPIDURAL/PCA KEYS XX PRN (19:15)
[2019-08-18] MEDS ORDERED: ONDANSETRON 4MG/2ML VIAL (J2405) IV PRN (19:15)
[2019-08-18] MEDS ORDERED: EPIDURAL COMMENT XX SCH (19:15)
[2019-08-18] MEDS ORDERED: REFRIGERATOR IV KEYS XX PRN (19:15)
[2019-08-18] MEDS ORDERED: diphenhydrAMINE INJ 50MG/ML VIAL (J1200) IV PRN (19:15)
[2019-08-18] MEDS ORDERED: ePHEDrine SULFATE 25 MG/5 ML(5MG/ML) SYRINGE IV PRN (19:15)
[2019-08-18] MEDS ORDERED: FENTANYL/ROPIVACAINE/NACL BAG 100 ML EPIDURAL SCH (19:15)
[2019-08-18] MEDS ORDERED: DOCUSATE SODIUM 100 MG CAP PO PRN (21:45)
[2019-08-18] MEDS ORDERED: DIBUCAINE 1% OINTMENT 30GM TOP PRN (21:45)
[2019-08-18] MEDS ORDERED: ACETAMINOPHEN 500 MG TAB PO PRN (21:45)
[2019-08-18] MEDS ORDERED: MOM 30ML SUSPENSION UDC PO PRN (21:45)
[2019-08-18] MEDS ORDERED: METHYLERGONOVINE MALEATE 0.2 MG TAB PO PRN (21:45)
[2019-08-18] MEDS ORDERED: RHOGAM 300 MCG (1500 IU) INJ (J2790) IM SCH (21:45)
[2019-08-18] MEDS ORDERED: ACETAMINOPHEN TAB 650MG DOSE (2X325MG) PO PRN (21:45)
[2019-08-18] MEDS ORDERED: ANUSOL HC CREAM 30GM TOP PRN (21:45)
[2019-08-18] MEDS ORDERED: IBUPROFEN 600 MG TAB PO PRN (21:45)
[2019-08-18] MEDS ORDERED: MEASLES,MUMPS,RUBELLA VACCINE INJ (MMR-II) (90707) SC SCH (21:45)
--- NOTE | 2019-08-18 22:02 | DNPDOC ---
[facility] Delivery Note Delivery Note DATE OF DELIVERY: 08/18/2019 PREDELIVERY DIAGNOSIS: 38+3/7 weeks' gestation and labor. POST DELIVERY DIAGNOSIS: Delivered. PROCEDURE: Spontaneous vaginal delivery. PROVIDER: Shawna Rowe CNM ANESTHESIA: Epidural. ESTIMATED BLOOD LOSS: 300 mL. FINDINGS: 7 pound 7 ounce, 3370gm male infant, Score 9/9, no nuchal cord. DELIVERY SUMMARY: Patient is a 24-year-old 1 now para 1-0-0-1 who was admitted to labor and delivery for induction of labor due to gestational hypertension. She received misoprostol and pitocin. AROM clear fluid 1320. She utilized an epidural for labor coping. Fully dilated 2099. Viable male delivered OLEKSANDR, restituted to LOP @ 2112. Spontaneous respirations, transitioned on maternal abdomen. Cord doubly clamped and cut once pulsations ceased. Apgars 9/9. Placenta flores, intact with 3v cord @ 5. Fundus firmed with massage and IV pitocin bolus. 1st degree perineal laceration repaired in one layer with 3-0 vicryl rapide. EBL 300ml. Sponge, sharp and instrument count correct at close of procedure. Shawna Rowe CNM Aug 18, 2019 22:02
[2019-08-18] MEDS ORDERED: diphenhydrAMINE 25 MG CAP PO ONE (23:00)
[2019-08-19] MEDS: IBUPROFEN 800 MG TAB PO PRN ×3 (00:08→19:30)
[2019-08-19 06:00] VITALS: BP 115/65
--- NOTE | 2019-08-19 07:22 | IPNPDOC ---
Text Note Date of Service The patient was seen on 08/19/19. NOTE PP #1 Feels well. Adequate pain management. OOB independently. Voiding. VSS, afebrile, normotensive Breasts soft, nipples intact Fundus firm, NT down 1 Lochia rubra light without odor Perineum well approximated without edema PP #1 Routine care. Consider discharge tomorrow VS,Fishbone, I+O VS, Fishbone, I+O Laboratory Tests 08/18/19 18:04 Vital Signs Date Time Temp Pulse Resp B/P (MAP) Pulse Ox O2 Delivery O2 Flow Rate FiO2 08/19/19 06:00 98.0 64 17 115/65 (82) 98 Room Air I&O- Last 24 Hours up to 6 AM 08/19/19 06:00 Intake Total 3553 ml Output Total 1150 ml Balance 2403 ml Shawna Rowe CNM Aug 19, 2019 07:22
[2019-08-19] MEDS: PRENATAL VITAMINS CHEWABLE TABLET PO SCH (07:50)
[2019-08-19 18:00] VITALS: BP 132/68
[2019-08-20 06:00] VITALS: BP 125/81
[2019-08-20] MEDS: PRENATAL VITAMINS CHEWABLE TABLET PO SCH (07:56)
[2019-08-20] MEDS: IBUPROFEN 800 MG TAB PO PRN (12:09)
== END 2019-08-20 12:10 | disposition home or self-care (01) | DRG 807 ==
LOC: M LDO 13:15 → M LDI 15:27 → M OBS 08-18 23:13
PROVIDERS: ADMIT Specialist; ATTEND Advanced Practice Midwife
PROC: 10E0XZZ Delivery of Products of Conception, External Approach (ICD-10-PCS; principal; 2019-08-18)
PROC: 3E0P7GC Introduction of Other Therapeutic Substance into Female Reproductive, Via Natural or Artificial Opening (ICD-10-PCS; 2019-08-18)
PROC: 10907ZC Drainage of Amniotic Fluid, Therapeutic from Products of Conception, Via Natural or Artificial Opening (ICD-10-PCS; 2019-08-18)
PROC: 0HQ9XZZ Repair Perineum Skin, External Approach (ICD-10-PCS; 2019-08-18)
DX: O13.4 Gestational [pregnancy-induced] hypertension without significant proteinuria, complicating childbirth (principal); Z37.0 Single live birth; Z3A.38 38 weeks gestation of pregnancy; O70.0 First degree perineal laceration during delivery

== ENCOUNTER → 2020-01-17 | Outpatient (CLI) | payer OTHER ==
--- NOTE | 2020-01-18 02:36 | REP ---
Clinical: Periumbilical mass. Technique: Tapia scale ultrasound examination using linear high frequency and curved array transducers. Findings: Directed ultrasound examination in the periumbilical region demonstrates normal subcutaneous tissues. No obvious mass lesion, abnormality or fluid collection identified. Impression: No obvious abnormality appreciated.
== END ==
LOC: M PLAIMG 13:49
PROVIDERS: ATTEND Family Medicine Addiction Medicine
DX: R19.05 Periumbilic swelling, mass or lump (principal)